=== PATIENT | female | born 1990 | race Caucasian/White ===

== ENCOUNTER 2016-06-26 03:09 | Outpatient (CLI) | payer OTHER, MEDICAID ==
[2016-06-26 03:54] VITALS: BMI 34.1
== END 2016-06-26 06:13 | disposition home or self-care (01) ==
LOC: FBCOUT 03:09 → FBC 03:09 → FBCOUT 06:13
PROVIDERS: ATTEND Family Medicine
DX: O47.9 False labor, unspecified (principal); Z3A.00 Weeks of gestation of pregnancy not specified

== ENCOUNTER 2016-06-26 08:18 | Outpatient (CLI) | payer OTHER, MEDICAID ==
[2016-06-26] MEDS ORDERED: MORPHINE SULFATE 10 MG/ML SYRINGE IM ONE (08:59)
[2016-06-26] MEDS ORDERED: PROMETHAZINE HCL 25 MG/ML VIAL IM ONE (08:59)
== END 2016-06-26 09:45 | disposition home or self-care (01) ==
LOC: FBCOUT 08:18 → FBC 08:27 → FBCOUT 09:45
PROVIDERS: ATTEND Family Medicine
DX: O47.9 False labor, unspecified (principal); Z3A.00 Weeks of gestation of pregnancy not specified

== ENCOUNTER 2016-06-26 19:54 | Outpatient (CLI) | payer OTHER, MEDICAID ==
[2016-06-26 20:13] VITALS: BMI 33.5
[2016-06-26] MEDS ORDERED: PROMETHAZINE HCL 25 MG/ML VIAL IM ONE (23:45)
[2016-06-26] MEDS ORDERED: MORPHINE SULFATE 10 MG/ML SYRINGE IM PRN (23:45)
[2016-06-26] MEDS ORDERED: MORPHINE SULFATE 10 MG/ML SYRINGE ONE (23:55)
== END 2016-06-27 00:18 | disposition home or self-care (01) ==
LOC: FBCOUT 19:54 → FBC 19:54 → FBCOUT 06-27 00:18
PROVIDERS: ATTEND Family Medicine
DX: O47.9 False labor, unspecified (principal); Z3A.00 Weeks of gestation of pregnancy not specified

== ENCOUNTER 2016-06-27 09:15 | Inpatient (IN) | payer OTHER ==
[2016-06-27 09:41] VITALS: BMI 34.0
[2016-06-27] MEDS ORDERED: IV START KIT ONE (09:51)
[2016-06-27] MEDS ORDERED: MINERAL OIL 25 ML BOT ONE (09:51)
[2016-06-27] MEDS ORDERED: LACTATED RINGERS 1,000 ML ONE (09:51)
[2016-06-27] MEDS ORDERED: OXYTOCIN 10 UNITS/ML VIAL ONE (09:51)
[2016-06-27] MEDS ORDERED: OXYTOCIN IN LR 500 ML IV ONE ×2 (09:52→09:55)
[2016-06-27] MEDS ORDERED: LIDOCAINE Viscous 2% 15 ML UDCUP ONE (09:52)
[2016-06-27] MEDS ORDERED: PUMP TUBING ONE (09:52)
[2016-06-27] MEDS ORDERED: LIDOCAINE 1% (PRES FREE) 30 ML VIAL ONE (09:52)
[2016-06-27] MEDS ORDERED: EPHEDRINE SULFATE 50 MG/ML 1ML VIAL IV PRN ×2 (09:55→11:15)
[2016-06-27] MEDS ORDERED: DIPHENHYDRAMINE HCL 50 MG/1 ML VIAL IV PRN ×2 (09:55→11:15)
[2016-06-27] MEDS ORDERED: ONDANSETRON 4 MG/2ML 2 ML VIAL IV PRN ×2 (09:55→11:15)
[2016-06-27] MEDS ORDERED: METOCLOPRAMIDE HCL 5 MG/ML 2ML VIAL IV PRN ×2 (09:55→11:15)
[2016-06-27] MEDS ORDERED: NALOXONE HCL 0.4 MG/ML VIAL IV PRN ×2 (09:55→11:15)
[2016-06-27] MEDS: LACTATED RINGERS 1,000 ML IV PRN ×2 (10:05→11:50)
[2016-06-27] MEDS ORDERED: EPIDURAL PUMP SET ONE (10:16)
[2016-06-27] MEDS ORDERED: FENTANYL/ROPIVACAINE EPIDURAL 250 ML EP ONE (10:16)
[2016-06-27 10:17] LABS: HEMATOCRIT 36.9 % (37.0-47.0); HEMOGLOBIN 12.9 gm/l (12.0-16.0); MEAN CELL VOLUME 84.8 fl (81.0-99.0); MEAN CORPUSCULAR HEMOGLOBIN 29.7 pg (27.0-31.0); RED CELL DISTRIBUTION WIDTH 12.7 % (11.5-14.5)
[2016-06-27] MEDS ORDERED: PENICILLIN G POTASSIUM 5 MMU in NS 0.9% (MINI-BAG PLUS) 100 ML IV ONE (10:20)
[2016-06-27] MEDS ORDERED: NS 0.9% (MINI-BAG PLUS) 100 ML IV ONE (10:47)
[2016-06-27] MEDS ORDERED: PENICILLIN G POTASSIUM 5 MMU VIAL ONE (10:47)
[2016-06-27] MEDS ORDERED: SODIUM CHLORIDE 0.9% 500 ML IV PRN (11:15)
[2016-06-27] MEDS ORDERED: LACTATED RINGERS 500 ML IV PRN (11:15)
[2016-06-27] MEDS ORDERED: NALBUPHINE HCL 20 MG/ML AMP IV PRN (11:15)
[2016-06-27] MEDS ORDERED: ROPIVACAINE 0.5% 30 ML VIAL ONE (11:23)
[2016-06-27] MEDS ORDERED: EPIDURAL PROCEDURE TRAY ONE (11:23)
[2016-06-27] MEDS: FENTANYL/ROPIVACAINE EPIDURAL 250 ML EP SCH (11:56)
--- NOTE | 2016-06-27 12:09 | PCMAN ---
OB Admission Note - History : 1 Term: 0 : 0 Abortions (S&E): 0 Livin Gestational Age (weeks): 41 Days (#/7): 1 Admit Cervical Dilation:: 5.5 Admit Cervical Effacement (%):: 100 Admit Station:: -2 Membrane Status: Bulging Labor Onset (Date): 06/27/16 Labor Onset (Time): 08:00 Contractions: Yes Contraction Frequency:: 4-5 min Summary of Course:: uncomplicated, not late to care. - Labs Blood Type: O (+) positive Rubella Status: Immune GBS Status: Positive Abnormal Labs: None - Problems (1) Active labor at term Status: Acute Code: [id number]
[2016-06-27] MEDS ORDERED: PENICILLIN G 3 MIL UNIT PREMIX 50 ML IV ONE ×2 (14:53→18:44)
[2016-06-27] MEDS: PENICILLIN G 3 MIL UNIT PREMIX 3 MMU in Premix (D5W) 50 ml 1 EACH IV SCH ×3 (14:54→18:53)
[2016-06-27] MEDS: LACTATED RINGERS 1,000 ML IV SCH ×2 (15:26→18:00)
--- NOTE | 2016-06-27 16:09 | PDOC36 ---
Provider Note Subject: pt doing well overall, epidural in, no pain Note: A/P: large decel around 15:06. prolonged ~6 min. down to the 90s. I left clinic and came in to assess. Resuscitation by her nurse was successful on hands/knees. Current FHR: 140s, cat 1 AROM at 15:55, mec-tinged fluid, otherwise clear, large volume Cervix; /-1 Plan to recheck in 1-2 hours & PRN
[2016-06-27] MEDS ORDERED: FENTANYL/ROPIVACAINE EPIDURAL 250 ML EP SCH (17:00)
--- NOTE | 2016-06-27 19:02 | PDOC36 ---
Provider Note Note: A/P: Pt is now complete in her dilatation and is attempting some pushes with her new nurse. I just arrived at the hospital. Baby tolerating well.
[2016-06-27] MEDS ORDERED: MINERAL OIL 25 ML BOT TP ONE (19:41)
[2016-06-27] MEDS ORDERED: HYDROCODONE/ACETAMINOPHEN 5/325MG TABLET PO PRN (20:01)
[2016-06-27] MEDS ORDERED: BENZOCAINE/MENTHOL 60 APPLIC/BOT TP PRN (20:01)
[2016-06-27] MEDS ORDERED: LANOLIN 50 APPLIC/7G TUBE TP PRN (20:01)
[2016-06-27] MEDS ORDERED: OXYCODONE HCL 5 MG TABLET PO PRN (20:01)
[2016-06-27] MEDS ORDERED: CALCIUM CARBONATE 500 MG TAB.CHEW PO PRN (20:01)
--- NOTE | 2016-06-27 20:07 | PCMDEL ---
Delivery Note - Labor 1st stage (hr/min):: 10:30 2nd stage (hr/min):: 01:00 3rd stage (hr/min):: 00:03 Total (hr/min):: 11:33 Pushed (hr/min):: 00:30 - Delivery Delivery (Date): 06/27/16 Delivery (Time): 19:24 Infant Gender: Male Presentation: Cephalic Position: OA Umbilical Cord: 3 Vessel (ff) Delayed Cord Clamping:: < 1-2 min 1 Minute Total: 7 5 Minute Total: 9 Placenta:: intact EBL:: 250 Perineum:: right sided vaginal side-wall laceration, hemostasis achieved with suture repair Suture:: 4-0 vicryl in the usual fashion Anesthesia/Meds:: epidural Length ROM:: 02:25 Comments:: Pt delivered successfully without any complications after 30min. of effective pushing
[2016-06-28] MEDS: IBUPROFEN 800 MG TABLET PO PRN ×2 (06:37→15:08)
[2016-06-28 06:58] LABS: HEMATOCRIT 27.8 % (37.0-47.0); HEMOGLOBIN 9.5 gm/l (12.0-16.0)
[2016-06-28] MEDS: FENTANYL/ROPIVACAINE EPIDURAL 250 ML EP SCH (08:45)
[2016-06-28] MEDS ORDERED: DOCUSATE SODIUM 100 MG CAPSULE PO SCH (09:00)
--- NOTE | 2016-06-28 09:39 | PDOC44 ---
- Subjective Day: 1 Reports Pain Tolerable, Reports , Reports Lochia Moderate, Reports Tolerating Regular Diet, Denies Nausea, Denies Vomiting - Objective Temp Pulse Resp BP Pulse Ox 98.1 F 85 18 103/59 06/28/16 03:29 06/28/16 03:29 06/28/16 03:29 06/28/16 03:29 Lab Results 06/28/16 06/27/16 06:20 10:00 WBC 19.3 H RBC 4.35 Hgb 9.5 L D 12.9 Hct 27.8 L 36.9 L Plt Count 331 Current Medications Generic Name Dose Route Start Last Admin Trade Name Freq PRN Reason Stop Dose Admin Acetaminophen/Hydrocodone Bitart 1 - 2 tab 06/27/16 20:01 [place] 5/325 PO Q4H PRN Pain (Moderate) Benzocaine/Menthol 1 applic 06/27/16 20:01 Dermoplast TP PRN PRN Patient Comfort Calcium Carbonate/Glycine 500 - 1,000 mg 06/27/16 20:01 Tums PO BID PRN Indigestion Docusate Sodium 100 mg 06/28/16 09:00 Colace PO DAILY FLORENCIO Emollient Ointment 1 applic 06/27/16 20:01 Olv-X-Ljlsic TP PRN PRN sore nipples Ropivacaine/Fentanyl/NS 250 mls @ 0 mls/hr 06/27/16 11:45 06/27/16 11:56 Fentanyl 2 Mcg/Ml + Ropivacaine 0.125% Ep Bag EP 13 mls/hr EPI FLORENCIO Administration Protocol Per Protocol Ibuprofen 800 mg 06/27/16 20:01 06/28/16 06:37 Motrin PO 800 mg Q8H PRN Administration Pain (Mild) Oxycodone HCl 5 - 10 mg 06/27/16 20:01 Roxicodone PO Q3H PRN Pain (Severe) Sodium Chloride 10 ml 06/27/16 20:01 Normal Saline 10ml Flush IV PRN PRN IV Flush - Physical Exam General: Afebrile, No Acute Distress Psych/Mental Status: Mood/Affect Appropriate, Bonding Well Neurological: Alert, Oriented x 4 Lungs: Clear to Auscultation Bilaterally Cardiovascular: Regular Rate and Rhythm Breast: Nipples Intact Fundus: Firm, Midline Extremities: Full ROM, No Edema, No Tenderness Skin: Normal Color, Warm, Dry, Intact, No Rash Wound [employer]: Dressing Clean/Dry/Intact, Well Approximated - Problems:Assessment/Plan (1) care following vaginal delivery Status: AcuteAssessment/Plan: 1. Routine care. 2. Contraception: condoms 3. Feeding: 4. Disposition: Home 5. likely d/c on
[2016-06-29] MEDS: IBUPROFEN 800 MG TABLET PO PRN (08:16)
--- NOTE | 2016-06-29 08:21 | PDOC39B ---
Hospital Course: ADMIT DATE: 06/27/16 DISCHARGE DATE: 06/29/16 ADMISSION DIAGNOSES: active labor at term PROCEDURES: , epidural HISTORY OF PRESENT ILLNESS: 25 year old G1 T0 L0 at 41 weeks 2 days presenting with active labor HOSPITAL COURSE: The patient delivered successfully without complication. By day of discharge the patient is ambulating, eating, voiding, and passing flatus without difficulty. Pain is controlled and lochia is appropriate. She is [] - Physical Exam Vital Signs: Temp Pulse Resp BP Pulse Ox 97.9 F 90 18 123/69 06/28/16 20:20 06/28/16 20:20 06/28/16 20:20 06/28/16 20:20 General: Afebrile, No Acute Distress Neurological: Alert, Oriented x 4 Lungs: Clear to Auscultation Bilaterally Cardiovascular: Regular Rate and Rhythm Fundus: Firm, Midline Extremities: Full ROM, No Edema Skin: Normal Color, Warm, Dry, Intact, No Rash Wound: Dressing Clean/Dry/Intact, Well Approximated - Discharge Diagnosis (1) care following vaginal delivery Status: AcuteAssessment/Plan: 1. Routine care. 2. Contraception: condoms 3. Feeding: 4. Disposition: Home 5. d/c on 06/29/16
[2016-06-29 08:22] VITALS: BP 109/59
== END 2016-06-29 13:10 | disposition home or self-care (01) | DRG 775 ==
LOC: FBCOUT 09:15 → FBC 09:15 → FBCOUT 09:53 → FBC 09:54
PROVIDERS: ADMIT Family Medicine; ATTEND Family Medicine
PROC: 10E0XZZ Delivery of Products of Conception, External Approach (ICD-10-PCS; principal; 2016-06-27)
PROC: 0KQM0ZZ Repair Perineum Muscle, Open Approach (ICD-10-PCS; 2016-06-27)
PROC: 10907ZC Drainage of Amniotic Fluid, Therapeutic from Products of Conception, Via Natural or Artificial Opening (ICD-10-PCS; 2016-06-27)
DX: O48.0 Post-term pregnancy (principal); O71.4 Obstetric high vaginal laceration alone; O99.824 Streptococcus B carrier state complicating childbirth; Z3A.41 41 weeks gestation of pregnancy; Z37.0 Single live birth

== ENCOUNTER 2016-07-19 09:10 | Outpatient (CLI) | payer OTHER | END 2016-07-19 09:11 | disposition home or self-care (01) | LOC: BABIESSH 09:10 | PROVIDERS: ATTEND Family Medicine | DX: Z39.1 Encounter for care and examination of lactating mother (principal) ==